=== PATIENT | female | born 1965 | race Caucasian/White ===

== ENCOUNTER → 2020-11-20 | Day surgery (SDC) | payer OTHER ==
[~2020-11-20] MED LIST: Azelastine; FISH OIL 1,0001 EACH PO; FLEXERIL PO; GLUCOPHAGE1000 MG PO; INVOKANA100 MG PO; SINGULAIR10 MG PO; ST. JOSEPH ASPI81 M1 PO; TRESIBA FL100 UNIT/1 SQ; TYLENOL 8 HOUR650 MG PO; VICTOZA 1818 MG/3 ML SC; VITAMIN D21250 MCG PO; ZOCOR40 MG PO; ZYRTEC10 MG PO
== END | disposition home or self-care (01) ==
LOC: OR 07:21
DX: K31.9 Disease of stomach and duodenum, unspecified (principal); K22.4 Dyskinesia of esophagus; K29.70 Gastritis, unspecified, without bleeding; E11.9 Type 2 diabetes mellitus without complications; I10 Essential (primary) hypertension; E78.00 Pure hypercholesterolemia, unspecified; E66.01 Morbid (severe) obesity due to excess calories; Z68.39 Body mass index [BMI] 39.0-39.9, adult; Z88.2 Allergy status to sulfonamides; Z88.8 Allergy status to other drugs, medicaments and biological substances; Z79.82 Long term (current) use of aspirin; Z79.4 Long term (current) use of insulin; Z79.899 Other long term (current) drug therapy
CPT/HCPCS: 82962; 84703; J2704; J7040

== ENCOUNTER → 2021-01-09 | Outpatient (CLI) | payer OTHER | LOC: RAD 07:42 | DX: K22.4 Dyskinesia of esophagus (principal) | CPT/HCPCS: 74220 ==